=== PATIENT | male | born 1975 | race African-American/Black ===

== ENCOUNTER 2020-06-06 08:59 | Emergency (ER) | payer OTHER ==
[2020-06-06 10:33] LABS: Absolute Lymphocytes (CBC) 1.3 K/uL (0.7-4.9); Basophils % 1.2 % (0-1.3); Lymphocytes % 21.6 % (15.3-44.8); MPV 8.5 fL (7.6-11.3); RBC Red Blood Cell Count 5.82 M/uL (4.33-5.43)
[2020-06-06 10:42] LABS: Protime INR 1.09
[2020-06-06] MEDS ORDERED: LORazepam 2 MG/ML VIAL ONE (10:43)
--- NOTE | 2020-06-06 10:55 | RAD REPORT ---
EXAM DESCRIPTION: Hallie Single View06/06/2020 10:21 am CLINICAL HISTORY: Cough COMPARISON: none FINDINGS: The lungs appear clear of acute infiltrate. The heart is normal size IMPRESSION: No acute abnormalities displayed
[2020-06-06 10:56] LABS: ALT/SGPT 25 U/L (12-78); AST/SGOT 19 U/L (15-37); Albumin 4.2 g/dL (3.4-5.0); Alkaline Phosphatase 72 U/L (45-117); BUN Blood Urea Nitrogen 11 mg/dL (7-18); Bicarbonate 25 mmol/L (21-32); Bilirubin Direct 0.2 mg/dL (0-0.2); Bilirubin Total 0.8 mg/dL (0.2-1.0); Glucose Level 91 mg/dL (74-106); Magnesium 2.3 mg/dL (1.8-2.4); Potassium 3.9 mmol/L (3.5-5.1); Protein, Total 7.8 g/dL (6.4-8.2); Sodium Level 139 mmol/L (136-145); Troponin (Emerg Dept Use Only) < 0.02 ng/mL (0.0-0.045)
[2020-06-06 10:59] LABS: NT PRO-BNP < 5 pg/mL (<125)
--- NOTE | 2020-06-06 11:28 | EKG ---
Test Date: 2020-06-06 Test Time: 10:01:46 Tire Repair Mechanic: MANUEL MEASUREMENT RESULTS: Intervals: Rate: 81 WI: 148 QRSD: 106 QT: 366 QTc: 425 [place]: P: 19 WI: 148 QRS: 24 T: 36 INTERPRETIVE STATEMENTS: Normal sinus rhythm Normal ECG No previous ECG available for comparison Electronically Signed On 06-06-20 11:27:14 FREIGHT TALLIER by Twin Hobbs
--- NOTE | 2020-06-06 12:36 | EDPHYS ---
Physician Documentation [facility] Name: Tad Barroso Age: 44 yrs Sex: Male : 1975 Arrival Date: 06/06/2020 Time: 09:01 Bed 23 Private MD: ED Physician Nirmal Washburn HPI: 06/06 10:50 This 44 yrs old Black Male presents to ER via Wheelchair with complaints of Chest kb Tightness, Breathing Difficulty. 10:50 The patient has shortness of breath at rest. Onset: The symptoms/episode began/occurred kb this morning. Duration: The symptoms are continuous. The patient's shortness of breath has no apparent modifying factors. Associated signs and symptoms: Pertinent positives: chest pain, non-productive cough, numbness in extremities. Severity of symptoms: At their worst the symptoms were moderate in the emergency department the symptoms are unchanged. The patient has not experienced similar symptoms in the past. The patient has not recently seen a physician. Pt reports he has had a cough for 3 weeks, not felt well for a few days. Today he woke up with shortness of breath. He went to work and, while driving, started feeling like his throat was closing, his chest muscles tightened up and he couldn't get enough air. "I've had a lot of stress and anxiety lately. It wakes me up at night like I get claustrophobic or something.". Historical: - Allergies: 09:10 Aspirin; ss - Home Meds: 09:10 None [Active]; ss - PMHx: 09:10 None; ss - PSHx: 09:10 Hernia repair; ss - Immunization history:: Adult Immunizations up to date. - Social history:: Smoking status: Patient/guardian denies using tobacco, but has a distant history of tobacco abuse. ROS: 10:47 Abdomen/GI: Negative for abdominal pain, nausea, vomiting, diarrhea, and constipation, kb Back: Negative for injury and pain, MS/Extremity: Negative for injury and deformity, Skin: Negative for injury, rash, and discoloration, Neuro: Negative for headache, weakness, numbness, tingling, and seizure. 10:47 Constitutional: Positive for malaise. 10:47 Cardiovascular: Positive for chest pain, Negative for edema, orthopnea, palpitations, paroxysmal nocturnal dyspnea. 10:47 Respiratory: Positive for cough, shortness of breath. 10:47 Psych: Positive for anxiety. Exam: 10:48 Head/Face: Normocephalic, atraumatic. Chest/axilla: Normal chest wall appearance and kb motion. Nontender with no deformity. No lesions are appreciated. Cardiovascular: Regular rate and rhythm with a normal S1 and S2. No gallops, murmurs, or rubs. Normal PMI, no JVD. No pulse deficits. Respiratory: Lungs have equal breath sounds bilaterally, clear to auscultation and percussion. No rales, rhonchi or wheezes noted. No increased work of breathing, no retractions or nasal flaring. Abdomen/GI: Soft, non-tender, with normal bowel sounds. No distension or tympany. No guarding or rebound. No evidence of tenderness throughout. Skin: Warm, dry with normal turgor. Normal color with no rashes, no lesions, and no evidence of cellulitis. MS/ Extremity: Pulses equal, no cyanosis. Neurovascular intact. Full, normal range of motion. Neuro: Awake and alert, GCS 15, oriented to person, place, time, and situation. Cranial nerves II-XII grossly intact. Motor strength 5/5 in all extremities. Sensory grossly intact. Cerebellar exam normal. Normal gait. 10:48 Constitutional: The patient appears alert, awake, anxious. 10:53 ECG was reviewed by the Attending Physician. kb Vital Signs: 09:08 Pulse 96; Resp 19; Temp 97.5(O); Pulse Ox 100% ; Weight 99.79 kg; Height 5 ft. 11 in. ss (180.34 cm); Pain 0/10; 09:12 BP 209 / 175; ss 10:10 BP 131 / 101; Pulse 86; ss 11:02 BP 107 / 79; Pulse 88; Resp 17; Pulse Ox 97% on R/A; ll1 09:08 Body Mass Index 30.68 (99.79 kg, 180.34 cm) ss MDM: 09:21 Patient medically screened. kb 10:47 Data reviewed: vital signs, nurses notes. Data interpreted: Pulse oximetry: on room air kb is 100 %. Interpretation: normal. 11:21 ED course: Pt reports he feels great after ativan. Symptoms now resolved. . kb 12:34 Counseling: I had a detailed discussion with the patient and/or guardian regarding: the kb historical points, exam findings, and any diagnostic results supporting the discharge/admit diagnosis, lab results, radiology results, the need for outpatient follow up, a family practitioner, to return to the emergency department if symptoms worsen or persist or if there are any questions or concerns that arise at home. 06/06 09:57 Order name: Basic Metabolic Panel; Complete Time: 11:00 kb 06/06 09:57 Order name: CBC with Diff; Complete Time: 10:39 kb 06/06 09:57 Order name: LFT's; Complete Time: 11:00 kb 06/06 09:57 Order name: Magnesium; Complete Time: 11:00 kb 06/06 09:57 Order name: NT PRO-BNP; Complete Time: 11:00 kb 06/06 09:57 Order name: PT-INR; Complete Time: 10:47 kb 06/06 09:37 Order name: Chest Single View XRAY; Complete Time: 10:56 kb 06/06 09:57 Order name: Troponin (emerg Dept Use Only); Complete Time: 11:00 kb 06/06 09:57 Order name: EKG; Complete Time: 09:58 kb 06/06 09:57 Order name: Cardiac monitoring; Complete Time: 11:02 kb 06/06 09:57 Order name: EKG - Nurse/Tech; Complete Time: 11:02 kb 06/06 12:03 Order name: Troponin (emerg Dept Use Only); Complete Time: 12:34 kb 06/06 12:03 Order name: EKG; Complete Time: 12:04 kb 06/06 09:57 Order name: IV Saline Lock; Complete Time: 11:02 kb 06/06 09:57 Order name: Labs collected and sent; Complete Time: 11:02 kb 06/06 09:57 Order name: O2 Per Protocol; Complete Time: 11:02 kb 06/06 09:57 Order name: O2 Sat Monitoring; Complete Time: 11:01 kb 06/06 12:03 Order name: EKG - Nurse/Tech; Complete Time: 12:36 kb EC:53 Rate is 81 beats/min. Rhythm is regular. QRS [place] is Normal. MN interval is normal at kb 148 msec. QRS interval is normal at 106 msec. QT interval is normal at 366 msec. 12:34 Rate is 87 beats/min. Rhythm is regular. QRS [place] is Normal. MN interval is normal at kb 136 msec. QRS interval is normal at 106 msec. QT interval is normal at 368 msec. Administered Medications: 10:35 Drug: Ativan 0.5 mg Route: IVP; Site: right antecubital; ll1 11:01 Follow up: Response: No adverse reaction; Anxiety decreased; RASS: Alert and Calm (0) ll1 Disposition: 06/07 07:27 Co-signature as Attending Physician, Nirmal Washburn MD I agree with the assessment and kdr plan of care. Disposition: 06/06/20 12:35 Discharged to Home. Impression: Chest pain, unspecified, Anxiety disorder, unspecified. - Condition is Stable. - Discharge Instructions: Nonspecific Chest Pain, [id number], Panic Attacks, Bdhq-[id number]. - Prescriptions for Hydroxyzine HCl 25 mg Oral Tablet - take 1 tablet by ORAL route every 8 hours As needed; 30 tablet. - Medication Reconciliation Form, Thank You Letter, Antibiotic Education, Prescription Opioid Use form. - Follow up: Emergency Department; When: As needed; Reason: Worsening of condition. Follow up: Private Physician; When: 2 - 3 days; Reason: Recheck today's complaints, Continuance of care, Re-evaluation by your physician. Signatures: Dispatcher [employer] EDGA Liliam Harris, SPORTS MEDICINE PHYSICIAN-C SPORTS MEDICINE PHYSICIAN-Nirmal Sahni MD MD [facility] Sherice Wilks RN RN ss Garcia, Victoria, RN RN vg1 Sun Donaldson RN RN ll1 Corrections: (The following items were deleted from the chart) 06/06 12:47 12:35 06/06/2020 12:35 Discharged to Home. Impression: Chest pain, unspecified; Anxiety vg1 disorder, unspecified. Condition is Stable. Forms are Medication Reconciliation Form, Thank You Letter, Antibiotic Education, Prescription Opioid Use. Follow up: Emergency Department; When: As needed; Reason: Worsening of condition. Follow up: Private Physician; When: 2 - 3 days; Reason: Recheck today's complaints, Continuance of care, Re-evaluation by your physician. kb
--- NOTE | 2020-06-06 12:36 | ER ---
Nurse's Notes [facility] Name: Tad Barroso Age: 44 yrs Sex: Male : 1975 Arrival Date: 06/06/2020 Time: 09:01 Bed 23 Private MD: Diagnosis: Chest pain, unspecified;Anxiety disorder, unspecified Presentation: 06/06 09:08 Chief complaint: Patient states: cough x 3 weeks and SOB that began this morning. ss Coronavirus screen: Client presents with at least one sign or symptom that may indicate coronavirus-19. Standard/surgical mask placed on the client. Ebola Screen: Patient denies exposure to infectious person. Patient denies travel to an Ebola-affected area in the 21 days before illness onset. Initial Sepsis Screen: Does the patient meet any 2 criteria? HR > 90 bpm. No. Patient's initial sepsis screen is negative. Does the patient have a suspected source of infection? No. Patient's initial sepsis screen is negative. Risk Assessment: Do you want to hurt yourself or someone else? Patient reports no desire to harm self or others. Onset of symptoms was May 23, 2020. 09:08 Method Of Arrival: Wheelchair ss 09:08 Acuity: JAYLON 2 ss Historical: - Allergies: 09:10 Aspirin; ss - Home Meds: 09:10 None [Active]; ss - PMHx: 09:10 None; ss - PSHx: 09:10 Hernia repair; ss - Immunization history:: Adult Immunizations up to date. - Social history:: Smoking status: Patient/guardian denies using tobacco, but has a distant history of tobacco abuse. Screenin:58 Abuse screen: Denies threats or abuse. Nutritional screening: No deficits noted. ll1 Tuberculosis screening: No symptoms or risk factors identified. Fall Risk IV access (20 points). Total Currie Fall Scale indicates No Risk (0-24 pts). Assessment: 09:55 General: Appears in no apparent distress. Behavior is calm, cooperative, appropriate ll1 for age. Pain: Complains of pain in chest Pain does not radiate. Pain began week. Neuro: Level of Consciousness is awake, alert, obeys commands, Oriented to person, place, time, situation, Appropriate for age Plant Maintenance Worker are equal bilaterally Moves all extremities. Full function Gait is steady, Speech is normal, Facial symmetry appears normal, Reports dizziness. Cardiovascular: Reports chest pain, shortness of breath, Heart tones S1 S2 Capillary refill < 3 seconds Clubbing of nail beds is absent JVD is absent Patient's skin is warm and dry. Pulses are all present. Rhythm is regular Chest pain is described as severe, quality is pressure, is located in anterior began 2 hours prior to arrival. Respiratory: Reports shortness of breath cough that is Airway is patent Trachea midline Respiratory effort is even, unlabored, Respiratory pattern is regular, symmetrical, Breath sounds are clear bilaterally. Onset: The symptoms/episode began/occurred week, the patient has mild shortness of breath. Vital Signs: 09:08 Pulse 96; Resp 19; Temp 97.5(O); Pulse Ox 100% ; Weight 99.79 kg; Height 5 ft. 11 in. ss (180.34 cm); Pain 0/10; 09:12 BP 209 / 175; ss 10:10 BP 131 / 101; Pulse 86; ss 11:02 BP 107 / 79; Pulse 88; Resp 17; Pulse Ox 97% on R/A; ll1 09:08 Body Mass Index 30.68 (99.79 kg, 180.34 cm) ss ED Course: 09:01 Patient arrived in ED. rg4 09:03 Liliam Harris FNP-C [facility]. kb 09:03 Nirmal Washburn MD is Attending Physician. kb 09:09 Triage completed. ss 09:10 Arm band placed on left wrist. ss 09:58 Sherice Wilks, RAMIN is Primary Nurse. ss 10:20 Inserted saline lock: 22 gauge in right antecubital area, using aseptic technique. ll1 Blood collected. 10:21 Chest Single View XRAY In Process Unspecified. EDMS 10:58 Patient has correct armband on for positive identification. Bed in low position. Call ll1 light in reach. Side rails up X 1. Pulse ox on. NIBP on. 12:46 No provider procedures requiring assistance completed. IV discontinued, intact, vg1 bleeding controlled, No redness/swelling at site. Pressure dressing applied. Administered Medications: 10:35 Drug: Ativan 0.5 mg Route: IVP; Site: right antecubital; ll1 11:01 Follow up: Response: No adverse reaction; Anxiety decreased; RASS: Alert and Calm (0) ll1 Outcome: 12:35 Discharge ordered by MD. childs 12:46 Discharged to home ambulatory. vg1 12:46 Condition: stable 12:46 Discharge instructions given to patient, Instructed on discharge instructions, follow up and referral plans. medication usage, Demonstrated understanding of instructions, follow-up care, medications, Prescriptions given X 1. 12:47 Patient left the ED. vg1 Signatures: Dispatcher [employer] EDMS Liliam Harris, SANGEETHA-Madison CRYSTALP-Sherice Day RN RN ss Amaris Pettit 4 Milagros Pettit RN RN vg1 Sun Donaldson RN RN ll1 Corrections: (The following items were deleted from the chart) 09:12 09:08 Acuity: JAYLON 3 ss ss
[2020-06-06 12:51] VITALS: TEMP 97.5
[2020-06-06 12:55] VITALS: BP 107/79; O2SAT 97
--- NOTE | 2020-06-08 06:13 | EKG ---
Test Date: 2020-06-06 Test Time: 12:16:45 Folder Stitcher Operator: MANUEL MEASUREMENT RESULTS: Intervals: Rate: 87 DC: 136 QRSD: 106 QT: 368 QTc: 442 [place]: P: 22 DC: 136 QRS: 10 T: 24 INTERPRETIVE STATEMENTS: Normal sinus rhythm Normal ECG Compared to ECG 06/06/2020 10:01:46 No significant changes Electronically Signed On 06-08-20 06:09:24 THIRD GRADE TEACHER by Twin Hobbs
== END 2020-06-06 12:47 | disposition home or self-care (01) ==
LOC: ER 08:59
DX: R07.9 Chest pain, unspecified (principal); F41.9 Anxiety disorder, unspecified; Z87.891 Personal history of nicotine dependence; R06.02 Shortness of breath
CPT/HCPCS: 36415; 71045; 80048; 80076; 83735; 83880; 84484; 85025; 85610; 93005; 96374; 99284

== ENCOUNTER 2023-11-25 17:12 | Emergency (ER) | payer OTHER ==
[2023-11-25] MEDS ORDERED: AMOX/K CLAV 875 MG TAB ONE (17:59)
[2023-11-25] MEDS ORDERED: TDAP (DIPHTH,PERTUSS(ACELL),TET VAC) 0.5 ML VIAL IMVAC ONE (17:59)
[2023-11-25] MEDS ORDERED: LIDOCAINE 1% 20 ML MDV ONE (18:01)
[2023-11-25] MEDS ORDERED: LORAZEPAM 1 MG TABLET ONE (18:13)
--- NOTE | 2023-11-25 19:19 | ER ---
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 Coronavirus screen: Client denies travel out of the [place] in the last 14 days. At this time, the client does not indicate any symptoms associated with coronavirus-19. Ebola Screen: Patient denies travel to an Ebola-affected area in the 21 days before illness onset. Initial Sepsis Screen: Does the patient meet any 2 criteria? No. Patient's initial sepsis screen is negative. Does the patient have a suspected source of infection? No. Patient's initial sepsis screen is negative. Risk Assessment: Do you want to hurt yourself or someone else? Patient reports no desire to harm self or others. Onset of symptoms was November 25, 2023. 17:17 Method Of Arrival: Ambulatory aa5 17:17 Acuity: JAYLON 3 aa5 Triage Assessment: 17:18 General: Appears uncomfortable, Behavior is calm, cooperative, appropriate for age. aa5 Pain: Complains of pain in right hand Quality of pain is described as aching, throbbing. Derm: Reports laceration R chest and R hand. Historical: - Allergies: 17:17 Aspirin; aa5 - PMHx: 17:17 None; aa5 - PSHx: 17:17 hernia repair; aa5 - Immunization history:: Last tetanus immunization: up to date. - Infectious Disease History:: Denies. - Social history:: Smoking status: Patient denies any tobacco usage or history of. Screenin:45 [facility] ED Fall Risk Assessment (Adult) History of falling in the last 3 months, al5 including since admission No falls in past 3 months (0 pts) Confusion or Disorientation No (0 pts) Intoxicated or Sedated No (0 pts) Impaired Gait No (0 pts) Mobility Assist Device Used No (0 pt) Altered Elimination No (0 pt) Score/Fall Risk Level 0 - 2 = Low Risk Oriented to surroundings, Maintained a safe environment, Hourly rounding (assess needs \T\ fall precautionary measures) done. Abuse screen: Denies threats or abuse. Denies injuries from another. Abuse screen: Denies threats or abuse. Denies injuries from another. Nutritional screening: No deficits noted. Tuberculosis screening: No symptoms or risk factors identified. Assessment: 17:42 General: Appears in no apparent distress. Behavior is calm, cooperative. Pain: al5 Complains of pain in dorsum of right hand Pain currently is 7 out of 10 on a pain scale. Pain began 1 hour ago. Is continuous. Neuro: Level of Consciousness is awake, alert, obeys commands, Oriented to person, place, time, situation, Baggage Handling Supervisor are equal bilaterally Gait is steady, Speech is normal, Facial symmetry appears normal. Cardiovascular: No deficits noted. Patient's skin is warm and dry. Respiratory: Airway is patent Trachea midline Respiratory effort is even, unlabored, Respiratory pattern is regular, symmetrical. GI: No deficits noted. No signs and/or symptoms were reported involving the gastrointestinal system. : No deficits noted. No signs and/or symptoms were reported regarding the genitourinary system. EENT: No deficits noted. No signs and/or symptoms were reported regarding the EENT system. Derm: Reports bite to R side chest and R hand by his dog. Musculoskeletal: No deficits noted. No signs and/or symptoms reported regarding the musculoskeletal system. Injury Description: Bite sustained to dorsum of right hand caused by a dog, is from animal, was sustained 30-60 minutes ago. Vital Signs: 17:17 BP 135 / 95; Pulse 117; Resp 18; Temp 98; Pulse Ox 98% on R/A; Weight 102.06 kg; Height aa5 5 ft. 11 in. ; 17:44 BP 133 / 93; Pulse 108; Resp 18; Pulse Ox 99% on R/A; Pain 7/10; al5 19:00 BP 141 / 101; Pulse 85; Resp 18; Pulse Ox 99% on R/A; al5 19:33 BP 123 / 93; Pulse 78; Resp 18; Pulse Ox 100% on R/A; al5 17:17 Body Mass Index 31.38 (102.06 kg, 180.34 cm) aa5 17:44 Pain Scale: Adult al5 ED Course: 17:16 Patient arrived in ED. em1 17:17 Liliam Harris FNP-C is [facility]. naz 17:17 Magan Santos DO is Attending Physician. kb 17:17 Arm band placed on Patient placed in an exam room, on a stretcher. aa5 17:18 Triage completed. aa5 17:42 Teodora Vázquez, RN is Primary Nurse. al5 17:45 Patient has correct armband on for positive identification. Bed in low position. Call al5 light in reach. Side rails up X 1. Provided Education on: need for calling animal control. 17:55 [facility] department of dog bite; has been reported. Officer states to have al5 patient come by after discharge. Notified patient. 19:34 Patient did not have IV access during this emergency room visit. al5 19:34 Assist provider with laceration repair on dorsum of right hand and anterior aspect of al5 right upper chest using sutures. Set up tray. Performed by Liliam GREGORIO Dressed with 4X4s, Kerlix, Neosporin, Patient tolerated well. Administered Medications: 18:10 Drug: Boostrix Tdap IM 0.5 ml IM once; as a single dose Route: IM; Site: right deltoid; al5 18:10 Drug: Amoxicillin-Clavulanate PO 875 mg PO once Route: PO; al5 18:14 Drug: LORazepam PO 1 mg PO once Route: PO; cm10 19:05 Drug: Lidocaine Infiltration (1 %) 1 vials 20 ml Infiltration once; to bedside {Note: al5 given by PA.} Volume: 20 ml; Route: Infiltration; 19:35 Follow up: Response: No adverse reaction al5 Medication: 19:33 Vaccine Information Statement (VIS) provided today. Questions and/or concerns al5 addressed. VIS edition date: December 30, 2020. Outcome: 19:18 Discharge ordered by . naz 19:34 Discharged to home ambulatory, with significant other, al5 19:34 Condition: good 19:34 Discharge instructions given to patient, Instructed on discharge instructions, follow up and referral plans. medication usage, Demonstrated understanding of instructions, follow-up care, medications, 19:35 Patient left the ED. al5 Signatures: Liliam Harris FNP-C FNP-Henry Forrester em1 Jennifer Rao, RN RN aa5 Rin Ramos, RN RN cm10 Teodora Vázquez, RN RN al5
--- NOTE | 2023-11-25 19:19 | EDPHYS ---
Physician Documentation [facility] Name: Tad Barroso Age: 47 yrs Sex: Male : 1975 Arrival Date: 11/25/2023 Time: 17:12 Bed 11 Private MD: ED Physician Magan Santos HPI: 11/24 17:21 This 47 yrs old Black Male presents to ER via Ambulatory with complaints of dog bite. kb 17:21 Pt is a 47 year old male who presents for multiple dog bites that occurred just cigar head pegger. kb States he was trying to give his dog a bath and he didn't want one so it bit him. . Historical: - Allergies: 17:17 Aspirin; aa5 - PMHx: 17:17 None; aa5 - PSHx: 17:17 hernia repair; aa5 - Immunization history:: Last tetanus immunization: up to date. - Infectious Disease History:: Denies. - Social history:: Smoking status: Patient denies any tobacco usage or history of. ROS: 17:21 Constitutional: As per HPI kb Exam: 17:21 Constitutional: This is a well developed, well nourished patient who is awake, alert, kb and in no acute distress. Head/Face: Normocephalic, atraumatic. ENT: Moist Mucous membranes Cardiovascular: Regular rate Respiratory: Respirations even and unlabored. No increased work of breathing. Talking in full sentences MS/ Extremity: Pulses equal, no cyanosis. Neurovascular intact. Full, normal range of motion. Neuro: Awake and alert, GCS 15, oriented to person, place, time, and situation. Moves all extremities. Normal gait. 17:21 Skin: injury, bite(s), superficial, 2 lacerations to dorsal aspect of right hand, 1 laceration to palmar aspect of right hand, laceration to right breast above nipple., Vital Signs: 17:17 BP 135 / 95; Pulse 117; Resp 18; Temp 98; Pulse Ox 98% on R/A; Weight 102.06 kg; Height aa5 5 ft. 11 in. ; 17:44 BP 133 / 93; Pulse 108; Resp 18; Pulse Ox 99% on R/A; Pain 7/10; al5 19:00 BP 141 / 101; Pulse 85; Resp 18; Pulse Ox 99% on R/A; al5 19:33 BP 123 / 93; Pulse 78; Resp 18; Pulse Ox 100% on R/A; al5 17:17 Body Mass Index 31.38 (102.06 kg, 180.34 cm) aa5 17:44 Pain Scale: Adult al5 Laceration: 19:15 Wound Repair of 2cm ( 0.8in ) subcutaneous laceration to dorsum of right hand. Linear kb shaped.. Distal neuro/vascular/tendon intact. Anesthesia: Wound infiltrated with 2 mls of 1% lidocaine. Wound prep: Extensive cleansing with hibiclenz by me, Wound irrigation with saline by me. Skin closed with 3 5-0 Prolene using simple sutures and sterile technique. Patient tolerated well. 19:15 Wound Repair of 1.5cm ( 0.6in ) subcutaneous laceration to palm of right hand. kb Irregularly shaped.. Distal neuro/vascular/tendon intact. Anesthesia: Wound infiltrated with 1.5 mls of 1% lidocaine. Wound prep: Extensive cleansing with hibiclenz by me, Wound irrigation with saline by me. Skin closed with 2 5-0 Prolene using simple sutures and sterile technique. Patient tolerated well. 19:15 Wound Repair of 1.5cm ( 0.6in ) subcutaneous laceration to lateral aspect of right kb hand. Linear shaped.. Distal neuro/vascular/tendon intact. Anesthesia: Wound infiltrated with 2 mls of 1% lidocaine. Wound prep: Extensive cleansing with hibiclenz by me, Wound irrigation with saline by me. Skin closed with 2 5-0 Prolene using simple sutures and sterile technique. Patient tolerated well. 19:15 Wound Repair of 5cm ( 2.0in ) subcutaneous laceration to anterior aspect of right upper kb chest. Linear shaped.. Distal neuro/vascular/tendon intact. Anesthesia: Local anesthetic administered with 5 mls of 1% lidocaine. Wound prep: Extensive cleansing with hibiclenz by me, Wound irrigation with saline by me. Skin closed with 5 4-0 Prolene using 3 cruciate knots, 2 simple sutures. Patient tolerated well. MDM: 17:17 Patient medically screened. kb 17:23 Differential diagnosis: superficial laceration, tendon injury, vascular injury. Data kb reviewed: vital signs, nurses notes. 19:14 Test considered but Not performed: X-ray: hand xray considered, but pt has full rom kb with no bony tenderness. chest x-ray/CT considered but laceration is superficial . Historians other than the Patient: Spouse/Significant Other: . Counseling: I had a detailed discussion with the patient and/or guardian regarding the historical points, exam findings, and any diagnostic results supporting the discharge/admit diagnosis, the need for outpatient follow up, a family practitioner, to return to the emergency department if symptoms worsen or persist or if there are any questions or concerns that arise at home. 11/24 17:21 Order name: Dressing - Wound; Complete Time: 19:07 kb 11/24 17:21 Order name: Gloves, Sterile; Complete Time: 19: kb 11/24 17:21 Order name: Prolene, Sutures; Complete Time: : kb 11/24 17: Order name: Setup Suture Tray; Complete Time: :07 kb Administered Medications: 18:10 Drug: Boostrix Tdap IM 0.5 ml IM once; as a single dose Route: IM; Site: right deltoid; al5 18:10 Drug: Amoxicillin-Clavulanate PO 875 mg PO once Route: PO; al5 18:14 Drug: LORazepam PO 1 mg PO once Route: PO; cm10 19:05 Drug: Lidocaine Infiltration (1 %) 1 vials 20 ml Infiltration once; to bedside {Note: al5 given by PA.} Volume: 20 ml; Route: Infiltration; 19:35 Follow up: Response: No adverse reaction al5 Disposition: 17:30 I was immediately available on-site in the Emergency Department for consultation in the ms3 care of the patient. Disposition Summary: 11/25/23 19:18 Discharge Ordered Condition: Stable kb Diagnosis - Laceration without foreign body of right hand - x3 kb - Laceration without foreign body of right upper chest kb - Bitten by dog kb Followup: kb - With: Emergency Department - When: As needed - Reason: Worsening of condition Followup: kb - With: Private Physician - When: 2 - 3 days - Reason: Recheck today's complaints, Continuance of care, Re-evaluation by your physician Discharge Instructions: - Discharge Summary Sheet kb - Animal Bite, Adult, [id number] kb Forms: - Medication Reconciliation Form kb - Antibiotic Education kb - Prescription Opioid Use kb - Patient Portal Instructions kb - Leadership Thank You Letter kb Prescriptions: - Augmentin 875-125 mg Oral Tablet - take 1 tablet ORAL route every 12 hours for 10 days; 20 tablet; Refills: 0, kb Product Selection Permitted Signatures: Liliam Harris, SANGEETHA-C NURSE PRN-Jennifer Almanza, RN RN aa5 Magan Santos DO DO ms3 Rin Ramos RN RN cm10 Teodora Vázquez RN RN al5
[2023-11-25 20:22] VITALS: TEMP 98
[2023-11-25 20:43] VITALS: BP 123/93; O2SAT 100
== END 2023-11-25 19:35 | disposition home or self-care (01) ==
LOC: ER 17:12
PROC: 0HQ5XZZ Repair Chest Skin, External Approach (ICD-10-PCS; principal; 2023-11-25)
PROC: 0HQFXZZ Repair Right Hand Skin, External Approach (ICD-10-PCS; 2023-11-25)
DX: S61.411A Laceration without foreign body of right hand, initial encounter (principal); S21.011A Laceration without foreign body of right breast, initial encounter; W54.0XXA Bitten by dog, initial encounter
CPT/HCPCS: 96372; 99284; 12004; J2001